=== PATIENT | male | born 1990 | race African-American/Black ===

== ENCOUNTER 2018-12-14 17:34 | Emergency (ER) | payer SELFPAY ==
[~2018-12-14] VITALS: Ht 180.3 cm; Wt 82.0 kg
[2018-12-14 17:56] VITALS: BP 118/67
[2018-12-14] MEDS ORDERED: SODIUM CHLORIDE 0.9% 1,000 ML IV ONE (18:12)
[2018-12-14] MEDS ORDERED: ONDANSETRON HCL 4MG/2ML INJ IV STA (18:12)
== END 2018-12-14 18:30 | disposition left against medical advice (07) ==
LOC: ER 17:45
DX: R56.9 Unspecified convulsions (principal)
CPT/HCPCS: 99283; J7030

== ENCOUNTER 2021-03-03 03:20 | Emergency (ER) | payer SELFPAY ==
[~2021-03-03] VITALS: Ht 175.3 cm; Wt 69.0 kg
[2021-03-03 03:22] VITALS: BP 155/92
== END 2021-03-03 04:38 | disposition home or self-care (01) ==
LOC: ER 03:20
DX: G40.909 Epilepsy, unspecified, not intractable, without status epilepticus (principal); R00.0 Tachycardia, unspecified; R03.0 Elevated blood-pressure reading, without diagnosis of hypertension
CPT/HCPCS: 99283